=== PATIENT | female | born 1940 | race Caucasian/White ===

== ENCOUNTER → 2016-03-15 | Outpatient (CLI) | payer MEDICARE, OTHER | LOC: LAB.O 10:05 | PROVIDERS: ATTEND Internal Medicine Hematology & Oncology | DX: C34.2 Malignant neoplasm of middle lobe, bronchus or lung (principal) ==

== ENCOUNTER → 2016-06-03 | Outpatient (CLI) | payer MEDICARE, OTHER | END | disposition home or self-care (01) | LOC: NC 13:20 | PROVIDERS: ATTEND Family Medicine | DX: C34.90 Malignant neoplasm of unspecified part of unspecified bronchus or lung (principal); J44.9 Chronic obstructive pulmonary disease, unspecified; I10 Essential (primary) hypertension; C34.2 Malignant neoplasm of middle lobe, bronchus or lung ==

== ENCOUNTER → 2016-06-08 | Outpatient (CLI) | payer MEDICARE, OTHER | END | disposition home or self-care (01) | LOC: NC 09:47 | PROVIDERS: ATTEND Family Medicine | DX: C34.90 Malignant neoplasm of unspecified part of unspecified bronchus or lung (principal); C77.9 Secondary and unspecified malignant neoplasm of lymph node, unspecified; I10 Essential (primary) hypertension; I48.91 Unspecified atrial fibrillation ==

== ENCOUNTER → 2016-07-27 | Outpatient (CLI) | payer MEDICARE, OTHER | LOC: LAB.O 14:24 | PROVIDERS: ATTEND Internal Medicine Hematology & Oncology | DX: C34.2 Malignant neoplasm of middle lobe, bronchus or lung (principal) ==

== ENCOUNTER → 2016-08-22 | Outpatient (CLI) | payer MEDICARE, OTHER | END | disposition home or self-care (01) | LOC: LAB.O 11:52 | PROVIDERS: ATTEND Internal Medicine Hematology & Oncology | DX: C34.2 Malignant neoplasm of middle lobe, bronchus or lung (principal) ==

== ENCOUNTER → 2016-10-12 | Outpatient (CLI) | payer MEDICARE, OTHER ==
--- NOTE | 2016-10-13 11:37 | CT ---
EXAM DESCRIPTION: CT ABDOMEN AND PELVIS WITHOUT AND WITH CONTRAST CLINICAL HISTORY: LLQ ABDOMINAL TENDERNESS COMPARISON: None Available. TECHNIQUE: CT of the abdomen and pelvis are performed prior to and during IV bolus administration of nonionic contrast. Oral contrast enhancement was not utilized This exam was performed according to our departmental dose-optimization program, which includes automated exposure control, adjustment of the mA and/or kV according to patient size and/or use of iterative reconstruction technique. FINDINGS: Dextroscoliosis and degenerative changes in the spine are present, centered at the thoracolumbar junction region. Emphysematous and mild fibrotic changes at the lung bases without dense consolidation or mass is present. The bones are osteopenic without destructive process or sclerotic metastatic disease. An electronic stimulator overlies the left gluteal region laterally. Noncontrast imaging demonstrates a benign less than 2 cm cyst upper pole left kidney medially with the left upper quadrant otherwise unremarkable with extensive aortic and mesenteric vascular calcification noted. A small subcentimeter cyst upper pole of the right kidney is suggested. Large amount of stool in the right colon suggests an element of constipation but bowel obstruction is not apparent. Contrast enhanced examination demonstrates a small normal spleen and the pancreas is normal in appearance without solid or cystic mass or ductal obstruction. The liver is normal in size and appearance with normal distention of the gallbladder without bile duct dilation. The right and left adrenal glands are normal. A small subcentimeter cyst upper pole of the right kidney and approximate 1.8 cm oval cyst upper pole of the left kidney medially are noted and benign in appearance without further workup recommended the retroperitoneum is unremarkable with extensive aorto iliac vascular calcification without aneurysm. No adenopathy is noted. No solid or cystic renal mass or obstruction seen Within the pelvis a small anteverted calcified uterus is present with what appears to be small amount of endometrial fluid less than 1 cm in thickness. No adnexal mass is noted. The cecum and right colon are stool filled suggesting an element of constipation but inflammatory changes or a high-grade obstruction or free abdominal or pelvic fluid is not apparent. Acute right lower quadrant or left lower quadrant inflammatory changes are not apparent. Deformity of the right iliac crest consistent with old trauma or surgery is noted with no bony destructive changes and significant dextroscoliosis of the upper lumbar spine with modest degenerative disease noted. IMPRESSION: 1. Extra scoliosis of the thoracolumbar spine and deformity of the right iliac crest suggesting old trauma or surgery. 2. Small benign upper pole renal cysts bilaterally without specific abnormality in the left upper quadrant to explain the patient's pain. 3. Mild fibrotic and moderately advanced emphysematous changes both lung bases. 4. Small anteverted calcified uterus with a fluid-filled endometrial cavity evident with less than 1 cm in thickness of the fluid collection. Consider pelvic sonography for further evaluation 5. Stool-filled cecum and right colon suggesting an element of constipation but without evidence of obstruction or volvulus. Electronically signed by: Trenton Yanez MD 10/13/2016 11:35 AM CDT
== END ==
LOC: CT 11:31
PROVIDERS: ATTEND Family Medicine
DX: R10.814 Left lower quadrant abdominal tenderness (principal); N85.4 Malposition of uterus; N28.1 Cyst of kidney, acquired; R30.0 Dysuria

== ENCOUNTER → 2016-11-02 | Outpatient (CLI) | payer MEDICARE, OTHER ==
--- NOTE | 2016-11-03 07:50 | US ---
EXAM DESCRIPTION: Pelvis Transvaginal CLINICAL HISTORY: ABN CT COMPARISON: None available. TECHNIQUE: Transvaginal pelvic US was performed. FINDINGS: Uterus: The uterus is anteverted and atrophied, measuring approximately 4 cm in length. There is a small to moderate amount of minimally complex fluid in the endometrial canal without endometrial thickening. There is a probable tiny subserosal fibroid in the uterine fundus of doubtful clinical significance. Cervix: 1 cm nabothian cyst Right Ovary/Right Adnexa: 1.3 x 1.1 x 1.1 cm and otherwise unremarkable. Left Ovary/Left Adnexa: 2.0 x 0.8 x 1.9 cm and otherwise unremarkable. Free Fluid: No pathologic free fluid. IMPRESSION: Small to moderate amount of slightly complex fluid in the endometrial canal, questionable clinical significance. This may represent free fluid or endometrial cyst measuring up to 2 cm maximum dimension. No endometrial thickening or endometrial mass. Probable 1 cm uterine fibroid and a 1 cm nabothian cyst, both also of questionable clinical significance. Electronically signed by: Manav Carlson MD 11/03/2016 7:48 AM CDT
== END | disposition home or self-care (01) ==
LOC: US 08:20
PROVIDERS: ATTEND Family Medicine
DX: D25.9 Leiomyoma of uterus, unspecified (principal); N88.8 Other specified noninflammatory disorders of cervix uteri

== ENCOUNTER → 2016-11-18 | Outpatient (CLI) | payer MEDICARE, OTHER ==
--- NOTE | 2016-11-18 18:07 | CT ---
EXAM DESCRIPTION: Abdomen/Pelvis w/wo Contrast CLINICAL HISTORY: 76 years Female, Malignant neoplasm of middle lobe, bronchus or lung COMPARISON: 12 October 2016 TECHNIQUE: Transaxial images were obtained with and without intravenous contrast media. Sagittal and coronal reconstruction was performed.This exam was performed according to our departmental dose-optimization program, which includes automated exposure control, adjustment of the mA and/or kV according to patient size and/or use of iterative reconstruction technique. FINDINGS: Minimal parenchymal scarring is observed in the right middle lobe and the right lower lobe. No pleural fluid is seen. The liver and spleen are unremarkable. No biliary ductal dilatation is observed. The gallbladder is imaged is normal. Calcific atherosclerotic changes observed in the abdominal aorta without evidence of aneurysmal dilatation. Imaging of the kidneys reveals evidence of small simple cysts. No hydronephrosis mass or calcification is detected. The exam does reveal prior gastric region surgery. A right thoracolumbar scoliosis is noted. The exam reveals a transsacral stimulator in place. No free fluid is observed. Degenerative changes are observed throughout the lumbar spine. Deformity of the pelvis is observed from prior fracturing. An atrophic uterus is observed unchanged from the prior exam. No bowel abnormality is detected. No evidence of metastatic neoplasm is detected. IMPRESSION: 1. Probable scarring is observed in the right middle and lower lobes. 2. No evidence of metastatic neoplasm is detected. 3. Prior gastric region surgery Electronically signed by: Ramon Downey MD 11/18/2016 6:05 PM CDT
== END | disposition home or self-care (01) ==
LOC: CT 09:08
DX: C34.2 Malignant neoplasm of middle lobe, bronchus or lung (principal)

== ENCOUNTER → 2017-02-13 | Outpatient (CLI) | payer MEDICARE, OTHER ==
--- NOTE | 2017-02-14 15:41 | CT ---
EXAM DESCRIPTION: Abdomen w/wo Contrast (accession [id number]), Chest w/o Contrast (accession [id number]) CLINICAL HISTORY: Malignant neoplasm of middle lobe, bronchus or lung COMPARISON: March 01, 2016 TECHNIQUE: Pre and postcontrast CT images of the chest are obtained using standard imaging protocol. This exam was performed according to our departmental dose-optimization program, which includes automated exposure control, adjustment of the mA and/or kV according to patient size and/or use of iterative reconstruction technique . FINDINGS: Postsurgical changes from aortic valve replacement are seen. Moderate coronary artery, aortic, and great vessels calcific atherosclerotic disease is seen. There has been interval resolution of the 3.4 x 2.8 cm peripherally enhancing presumed lymph node in the subcarinal region seen on previous exam. No pathologic enlarged mediastinal, hilar, or axillary lymphadenopathy seen. There are postsurgical changes to the right chest from partial lobectomy. Lungs are hyperinflated. Moderate centrilobular emphysematous changes are seen. There is a peripheral interstitial thickening in the lungs) left have a similar appearance to previous exam. Several noncalcified nodular densities in the right lung are unchanged from previous. 6 mm noncalcified pulmonary nodule in the left lower lobe on image 44 is stable compared to previous exam. Image 31 of series 2 shows new 10 mm pleural-based area of soft tissue nodularity in the anterior right lower chest not definitely seen on previous exam. Scoliosis and degenerative changes of the spine are noted. No aggressive bony lesions are seen. IMPRESSION: Interval resolution of the enhancing mass lymph node in the subcarinal region seen on previous exam. Postsurgical changes to the chest are again noted. Moderate emphysematous changes to the chest. Seen with areas of chronic interstitial changes. There is a new area of nodularity in the parenchyma of the right lung measuring 10 mm. Could represent scarring versus new pulmonary nodule. Recommend follow-up CT imaging in 3-6 months for further evaluation. Other pulmonary nodules appear relatively stable from previous. Electronically signed by: Noe Hou MD 02/14/2017 3:39 PM [employer]
--- NOTE | 2017-02-14 15:41 | CT ---
EXAM DESCRIPTION: Abdomen w/wo Contrast (accession [id number]), Chest w/o Contrast (accession [id number]) CLINICAL HISTORY: Malignant neoplasm of middle lobe, bronchus or lung COMPARISON: March 01, 2016 TECHNIQUE: Pre and postcontrast CT images of the chest are obtained using standard imaging protocol. This exam was performed according to our departmental dose-optimization program, which includes automated exposure control, adjustment of the mA and/or kV according to patient size and/or use of iterative reconstruction technique . FINDINGS: Postsurgical changes from aortic valve replacement are seen. Moderate coronary artery, aortic, and great vessels calcific atherosclerotic disease is seen. There has been interval resolution of the 3.4 x 2.8 cm peripherally enhancing presumed lymph node in the subcarinal region seen on previous exam. No pathologic enlarged mediastinal, hilar, or axillary lymphadenopathy seen. There are postsurgical changes to the right chest from partial lobectomy. Lungs are hyperinflated. Moderate centrilobular emphysematous changes are seen. There is a peripheral interstitial thickening in the lungs) left have a similar appearance to previous exam. Several noncalcified nodular densities in the right lung are unchanged from previous. 6 mm noncalcified pulmonary nodule in the left lower lobe on image 44 is stable compared to previous exam. Image 31 of series 2 shows new 10 mm pleural-based area of soft tissue nodularity in the anterior right lower chest not definitely seen on previous exam. Scoliosis and degenerative changes of the spine are noted. No aggressive bony lesions are seen. IMPRESSION: Interval resolution of the enhancing mass lymph node in the subcarinal region seen on previous exam. Postsurgical changes to the chest are again noted. Moderate emphysematous changes to the chest. Seen with areas of chronic interstitial changes. There is a new area of nodularity in the parenchyma of the right lung measuring 10 mm. Could represent scarring versus new pulmonary nodule. Recommend follow-up CT imaging in 3-6 months for further evaluation. Other pulmonary nodules appear relatively stable from previous. Electronically signed by: Noe Hou MD 02/14/2017 3:39 PM [employer] F[employer]
--- NOTE | 2017-02-14 15:52 | CT ---
EXAM DESCRIPTION: CT abdomen and pelvis with and without contrast CLINICAL HISTORY: Malignant neoplasm of middle lobe, bronchus or lung COMPARISON: November 18, 2016 TECHNIQUE: Pre and postcontrast CT images of the abdomen are obtained. This exam was performed according to our departmental dose-optimization program, which includes automated exposure control, adjustment of the mA and/or kV according to patient size and/or use of iterative reconstruction technique . FINDINGS: Findings in the lower chest are described on CT of the chest from today. Liver, spleen, pancreas, and adrenal glands are unremarkable. Bilateral renal cortical cysts are stable from previous. No significant nephrolithiasis. No obvious ureteral obstruction. Severe calcific atherosclerotic disease is seen. No pathologic lymphadenopathy. Visualized bowel and colon are unremarkable. Partly visualized generator pack in the left gluteal region is seen with right-sided sacral stimulator. Healed fracture of the right iliac crest is partly visualized. Monitored dextrocurvature of the thoracolumbar junction with degenerative changes of the spine are seen. IMPRESSION: No acute findings on CT of the abdomen. No CT evidence of metastatic disease to the abdomen. Severe atherosclerotic disease. Other chronic findings as described above. 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
== END | disposition home or self-care (01) ==
LOC: CT 13:09
PROVIDERS: ATTEND Internal Medicine Hematology & Oncology
DX: C34.2 Malignant neoplasm of middle lobe, bronchus or lung (principal)

== ENCOUNTER → 2017-04-27 | Outpatient (CLI) | payer MEDICARE, OTHER ==
--- NOTE | 2017-04-29 13:42 | CT ---
EXAM DESCRIPTION: Chest w/Contrast : Computed Tomography. CLINICAL HISTORY: Malignant neoplasm of middle lobe, bronchus or lung COMPARISON: CT scan of the chest 02/13/2017. TECHNIQUE: Spiral-axial scans at 5.0 mm intervals through the lungs and thorax with IV contrast. 2.5 mm lung algorithm axial reconstructions. Coronal 2.0 Mm reconstructions. No adverse reactions. Total Exam DLP: 168.33 mGy-cm. This exam was performed according to our departmental dose-optimization program which includes automated exposure control, adjustment of the mA and/or kV according to patient size and/or use of iterative reconstruction technique; to reduce radiation dose to as low as reasonably achievable (ALARA). FINDINGS: Prominent airspaces in the lungs bilaterally. Bilateral scattered centrilobular blebs. Bilateral pleural-based blebs. Hyperinflation of the left lung. Scarring and volume loss in the right upper lobe and thickening of the right horizontal fissure. Pleural thickening laterally where the fissure inserts. Volume loss in the right middle lobe with expansion of the lower lobe. 5 cm craniocaudal, irregular focus of pleural thickening and spiculation lateral anterior right lower lobe unchanged since the prior study. Peripheral right lower lobe posterior pulmonary cysts and tree-in-bud densities are stable. No new mass nodules or effusion bilaterally. No pneumothorax. Minimal enhancement of the thyroid gland in the mediastinum. No enlarged lymph nodes in the neck base. Subcarinal surgical clips. Sternotomy wires. 11 mm short axis lymph node azygos region. 7 mm short axis lymph node AP window. 6 mm short axis lymph node left hilum. 7 mm short axis lymph node right hilum. Aortic valve visualized along with coronary artery calcifications. Atherosclerotic calcifications of aorta and the proximal brachiocephalic vessels. Surgical clips right hilum. Levoscoliosis of the thoracic spine and thoracolumbar dextroscoliosis. Spondylosis at multiple levels with decreased bone density. Minimal joint space narrowing bilateral glenohumeral joints. No bone destruction. Scarring and loss of adipose tissue upper anterior right chest wall stable since the prior study. Abdominal aortic calcifications and calcifications of the celiac and SMA vessels. Normal size and enhancement of the spleen and adrenal glands. 2.5 cm cyst upper left kidney. IMPRESSION: Postsurgical changes in the right thorax. Scarring and volume loss. No recurrent mass, abnormal nodules or pleural effusion. Bilateral centrilobular emphysematous changes. Enlarged lymph nodes in the ranjith and mediastinum are stable. Electronically signed by: Brad Romero MD 04/29/2017 1:41 PM [employer] APPRENTICE
== END ==
LOC: CT 08:30
DX: K74.3 Primary biliary cirrhosis (principal); C34.2 Malignant neoplasm of middle lobe, bronchus or lung; K59.01 Slow transit constipation; M81.0 Age-related osteoporosis without current pathological fracture; K59.00 Constipation, unspecified; E55.9 Vitamin D deficiency, unspecified

== ENCOUNTER → 2017-04-28 | Outpatient (CLI) | payer MEDICARE, OTHER ==
--- NOTE | 2017-05-01 08:32 | US ---
EXAM DESCRIPTION: Ultrasound examination of the liver. CLINICAL HISTORY: 76 years Female, PRIMARY BILIARY CIRRHOSIS COMPARISON: CT abdomen February 13, 2017 and ultrasound of the liver February 17, 2016 TECHNIQUE: Sonogram of the right upper abdomen was performed. FINDINGS: Visualized portions of the pancreas are unremarkable. Normal appearance of aorta and inferior vena cava. Liver is homogeneous in texture. No focal liver lesion. Normal appearance of hepatic veins and inferior vena cava. Positive color flow in the portal vein and inferior vena cava. Normal caliber of the common bile duct. Gallbladder appears normal with no stones or wall thickening. Liver parenchyma is homogeneous in texture. No focal liver lesion. Common duct measures 2.8 mm in diameter. Liver length is 14.6 cm in diameter on the present study compared to 15.6 cm in length on the previous exam. No significant change. No focal liver lesion. Liver surface appears relatively smooth anteriorly in the region of the left lobe. On some images, the anterior and posterior surfaces of the right lobe appear mildly irregular as seen with cirrhosis. Liver surface appears smooth on the previous sonogram and previous CT of the abdomen. No intrahepatic or extrahepatic bile duct dilatation. IMPRESSION: No acute process is identified on sonographic examination of the right upper abdomen. See above. Electronically signed by: Prince Vergara MD 05/01/2017 8:31 AM SPLITTER HAND
== END ==
LOC: US 13:30
DX: K74.3 Primary biliary cirrhosis (principal); K59.01 Slow transit constipation; M81.0 Age-related osteoporosis without current pathological fracture; K59.00 Constipation, unspecified; E55.9 Vitamin D deficiency, unspecified; R77.2 Abnormality of alphafetoprotein; R97.8 Other abnormal tumor markers; R93.5 Abnormal findings on diagnostic imaging of other abdominal regions, including retroperitoneum; R93.8 Abnormal findings on diagnostic imaging of other specified body structures

== ENCOUNTER 2017-05-19 10:11 | Emergency (ER) | payer MEDICARE, OTHER ==
[2017-05-19] MEDS ORDERED: ONDANSETRON INJ 4 MG/2 ML VIAL IV ONE (10:35)
--- NOTE | 2017-05-19 10:40 | ED.PDOC ---
History of Present Illness - General Chief Complaint: GI Problem Stated Complaint: abdominal pain Time Seen by Provider: 05/19/17 10:27 Source: patient Exam Limitations: no limitations - History of Present Illness Initial Comments: Patient presents with mid-abdominal pain since yesterday. Today she developed dry heaves. The pain is constant, non-radiating, cramping, no previous episodes , worse with movement, better with rest. Had a left "hernia repair" but no other abdominal surgeries. No dysuria. She had arterial stents placed in both legs 3 days ago for PVD. She was asymptomatic the next day. Her father had an AMI as well as her brother. She is not diabetic. She has smoked a pack per day of cigarrettes for 67 years and has COPD. She also is being treated for hyperlipidemia. She has a history of bipedal edema. No chest pain. No other complaints. Timing/Duration: 24 hours Severity: mild Improving Factors: rest Worsening Factors: movement Associated Symptoms: other - as in HPI Allergies/Adverse Reactions: Allergies NO KNOWN ALLERGY Allergy (Verified 04/15/15 07:19) Home Medications: Ambulatory Orders Aspirin [Aspirin 81] 81 mg PO DAILY 02/19/13 Atenolol 50 mg PO DAILY 02/19/13 Levothyroxine Sodium [Synthroid] 100 mcg PO DAILY 02/19/13 Simvastatin [Zocor] 50 mg PO DAILY 02/19/13 Ursodiol 900 mg PO DAILY 02/19/13 Pantoprazole Tablet [Protonix] 40 mg PO PRN PRN 04/14/15 Clopidogrel Bisulfate [Plavix] 75 mg PO QD 05/19/17 Ergocalciferol [Vitamin D] 50,000 unit PO WKLY 05/19/17 Folic Yhkf-Dahcbsquit-Iaksedsv [Folbic 2.5-25-2 mg] 1 tab PO DAILY 05/19/17 Losartan Potassium 50 mg PO DAILY 05/19/17 Ondansetron [Zofran Odt] 4 mg PO Q6HRS #10 tab 05/19/17 Promethazine Tab [Phenergan Tablet] 25 mg PO .Q4H #10 tab 05/19/17 Review of Systems - Review of Systems Constitutional: States: no symptoms reported EENTM: States: no symptoms reported Respiratory: States: no symptoms reported Cardiology: States: no symptoms reported Gastrointestinal/Abdominal: States: see HPI Genitourinary: States: no symptoms reported Musculoskeletal: States: no symptoms reported Skin: States: no symptoms reported Neurological: States: no symptoms reported Endocrine: States: no symptoms reported Hematologic/Lymphatic: States: no symptoms reported Past Medical History (General) - Patient Medical History Hx Seizures: No Hx Stroke: No Hx Asthma: No Hx of COPD: No Hx Cardiac Disorders: Yes Hx Congestive Heart Failure: No Hx Pacemaker: No Hx Hypertension: Yes Hx Thyroid Disease: Yes Hx Diabetes: No Hx Cancer: Yes - Lung Hx MRSA: No - Vaccination History Hx Influenza Vaccination: Yes - 2015 - Social History Hx Tobacco Use: Yes Hx Alcohol Use: No Hx Substance Use: No Hx Physical Abuse: No Hx Emotional Abuse: No - Female History Patient : No Family Medical History - Family History Mother Family History: No Known Living Status: Hx Family Hypertension: Yes Hx Cardiac Disease: Yes Physical Exam - Physical Exam General Appearance: Alert Eye Exam: bilateral normal Ears, Nose, Throat: normal ENT inspection Neck: non-tender, full range of motion, supple Respiratory: decreased breath sounds, other - distant breath sounds in all lung rojo. scant expiratory wheezing that is scattered. 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, no motor/sensory deficits, alert Skin Exam: normal color Lymphatic: no adenopathy Progress - Progress Progress: 05/19/17 13:08 Laboratory Tests 05/19/17 05/19/17 05/19/17 10:32 10:33 10:33 WBC 13.4 H RBC 4.00 L Hgb 11.9 L Hct 36.0 MCV 89.9 MCH 29.7 MCHC 33.1 RDW 13.5 Plt Count 155 MPV 9.6 Absolute Neuts (auto) 12.10 H Absolute Lymphs (auto) 0.60 L Absolute Monos (auto) 0.60 Absolute Eos (auto) 0.00 Absolute Basos (auto) 0.00 Neutrophils % 90.3 H Lymphocytes % 4.8 L Monocytes % 4.4 Eosinophils % 0.2 L Basophils % 0.3 PT INR PTT (SP) Sodium 139 Potassium 3.9 Chloride 107 Carbon Dioxide 23 Anion Gap 12.9 BUN 14 Creatinine 0.64 BUN/Creatinine Ratio 21.9 H Random Glucose 177 H Serum Osmolality 282.4 Calcium 10.3 H Total Bilirubin 1.2 H AST 29 ALT 19 Alkaline Phosphatase 150 H Creatine Kinase 19 L CK-MB (CK-2) 1.3 CK-MB (CK-2) % Not Reportable Troponin I 0.04 B-Natriuretic Peptide 257.0 H* Serum Total Protein 7.5 Albumin 3.3 Globulin 4.2 H Albumin/Globulin Ratio 0.8 L Lipase TSH Urine Color Urine Appearance Urine pH Ur Specific [place] Urine Protein Urine Glucose (UA) Urine Ketones Urine Blood Urine Nitrite Urine Bilirubin Urine Urobilinogen Ur Leukocyte Esterase Urine RBC Urine WBC Ur Epithelial Cells Urine Bacteria 05/19/17 05/19/17 05/19/17 10:33 10:34 10:35 WBC RBC Hgb Hct MCV MCH MCHC RDW Plt Count MPV Absolute Neuts (auto) Absolute Lymphs (auto) Absolute Monos (auto) Absolute Eos (auto) Absolute Basos (auto) Neutrophils % Lymphocytes % Monocytes % Eosinophils % Basophils % PT 12.5 INR 1.110 PTT (SP) 28.2 Sodium Potassium Chloride Carbon Dioxide Anion Gap BUN Creatinine BUN/Creatinine Ratio Random Glucose Serum Osmolality Calcium Total Bilirubin AST ALT Alkaline Phosphatase Creatine Kinase CK-MB (CK-2) CK-MB (CK-2) % Troponin I B-Natriuretic Peptide Serum Total Protein Albumin Globulin Albumin/Globulin Ratio Lipase 21 L TSH 0.26 L Urine Color Urine Appearance Urine pH Ur Specific [place] Urine Protein Urine Glucose (UA) Urine Ketones Urine Blood Urine Nitrite Urine Bilirubin Urine Urobilinogen Ur Leukocyte Esterase Urine RBC Urine WBC Ur Epithelial Cells Urine Bacteria 05/19/17 12:42 WBC RBC Hgb Hct MCV MCH MCHC RDW Plt Count MPV Absolute Neuts (auto) Absolute Lymphs (auto) Absolute Monos (auto) Absolute Eos (auto) Absolute Basos (auto) Neutrophils % Lymphocytes % Monocytes % Eosinophils % Basophils % PT INR PTT (SP) Sodium Potassium Chloride Carbon Dioxide Anion Gap BUN Creatinine BUN/Creatinine Ratio Random Glucose Serum Osmolality Calcium Total Bilirubin AST ALT Alkaline Phosphatase Creatine Kinase CK-MB (CK-2) CK-MB (CK-2) % Troponin I B-Natriuretic Peptide Serum Total Protein Albumin Globulin Albumin/Globulin Ratio Lipase TSH Urine Color Yellow Urine Appearance Clear Urine pH 7.0 Ur Specific [place] 1.010 Urine Protein Negative Urine Glucose (UA) Negative Urine Ketones 15 H Urine Blood Moderate H Urine Nitrite Negative Urine Bilirubin Negative Urine Urobilinogen 0.2 Ur Leukocyte Esterase Negative Urine RBC 3-5 H Urine WBC 0 Ur Epithelial Cells 1-[address] findings suggest colitis. Patient discharged with orders to increase oral fluids and also with RX for zofran and phenergan. Departure - Departure Clinical Impression: Gastroenteritis Disposition: Discharge to Home or Self Care Condition: Good Departure Forms: ED Discharge - Pt. Copy, Patient Portal Self Enrollment Diet: other - increase oral fluids Activity: increase activity as tolerated Referrals: Camron Garzon MD [Primary Care Provider] - 1-2 Weeks Prescriptions: Ondansetron [Zofran Odt] 4 mg PO Q6HRS #10 tab Promethazine Tab [Phenergan Tablet] 25 mg PO .Q4H #10 tab Home Medications: Ambulatory Orders Aspirin [Aspirin 81] 81 mg PO DAILY 02/19/13 Atenolol 50 mg PO DAILY 02/19/13 Levothyroxine Sodium [Synthroid] 100 mcg PO DAILY 02/19/13 Simvastatin [Zocor] 50 mg PO DAILY 02/19/13 Ursodiol 900 mg PO DAILY 02/19/13 Pantoprazole Tablet [Protonix] 40 mg PO PRN PRN 04/14/15 Clopidogrel Bisulfate [Plavix] 75 mg PO QD 05/19/17 Ergocalciferol [Vitamin D] 50,000 unit PO WKLY 05/19/17 Folic Pfop-Ptqskcfnoq-Gwpzrhuc [Folbic 2.5-25-2 mg] 1 tab PO DAILY 05/19/17 Losartan Potassium 50 mg PO DAILY 05/19/17 Ondansetron [Zofran Odt] 4 mg PO Q6HRS #10 tab 05/19/17 Promethazine Tab [Phenergan Tablet] 25 mg PO .Q4H #10 tab 05/19/17 Additional Instructions: Increase oral fluids. Return to E.R. if nausea and vomiting continues without the development of diarrhea by monday.
[2017-05-19 10:41] VITALS: O2SAT 98
--- NOTE | 2017-05-19 10:53 | RAD ---
EXAM DESCRIPTION: Chest,1 View CLINICAL HISTORY: abdominal pain COMPARISON: December 30, 2013 IMPRESSION: Single AP portable upright view of the chest shows cardiac silhouette and pulmonary vasculature to be within normal limits. Postsurgical changes from sternotomy with aortic valve replacement are again seen. Lungs are normally aerated. Postsurgical changes to the right chest are seen with surgical suture line in the right suprahilar region. There is increased elevation of the lateral right hemidiaphragm with increased interstitial markings in the right lower lobe that could indicate atelectasis versus scarring related to interval postsurgical changes to the chest. This has a similar appearance to previous CT scan from April 27, 2017. No acute appearing infiltrates are identified. Electronically signed by: Noe Hou MD 05/19/2017 10:52 AM SERVICE LEARNING COORDINATOR
--- NOTE | 2017-05-19 12:52 | CT ---
EXAM DESCRIPTION: Abdomen/Pelvis w/Contrast CLINICAL HISTORY: abd pain COMPARISON: February 13, 2017 and November 18, 2016 TECHNIQUE: CT of the abdomen and Pelvis was performed with IV contrast. This exam was performed according to our departmental dose-optimization program, which includes automated exposure control, adjustment of the mA and/or kV according to patient size and/or use of iterative reconstruction technique. FINDINGS: Again seen are postoperative changes in the mediastinum. There is a 6 or 7 mm pleural-based nodular density in the right middle lobe with some adjacent linear density, unchanged from February,, but new from an older exam performed in January,. The lung bases are otherwise unremarkable. There is a tiny right-sided pleural effusion only partially visualized. Mural calcifications are noted in the abdominal aorta without aneurysm or dissection. There is a small amount of ascites adjacent to the liver and spleen. No adenopathy or pneumoperitoneum. No calcified gallstone or liver mass. The spleen is not enlarged. The pancreas and adrenals are unremarkable. There are round low density lesions in both kidneys, the largest measuring 2 cm diameter superior pole left kidney. These are indeterminate but probably cystic. There are a few dilated fluid-filled small bowel loops in the right lower quadrant with some adjacent fluid and possible wall thickening. Is a moderate amount of stool and gas in the colon without colonic wall thickening or pericolonic inflammation. The appendix is not definitely identified. No bladder wall thickening. The uterus and ovaries are not identified, correlate with surgical history. There are degenerative changes in lumbar spine at several levels including mild dextroscoliosis only partially visualized. There is an old healed right iliac fracture. IMPRESSION: Several dilated fluid-filled small bowel loops in the right lower quadrant with possible small bowel wall thickening. Findings are nonspecific, but infectious or inflammatory enteritis should be considered. Small to moderate amount of colonic stool and gas, see no convincing evidence of small bowel obstruction at this time. If symptoms persist or worsen, follow-up KUB or CT should be considered. Small amount of ascites and a tiny right-sided pleural effusion. Round low-density lesions in both kidneys, indeterminate but probably cystic. Ultrasound could be performed for confirmation. 6 or 7 mm pleural-based right middle lobe nodule with slightly speech related margins. This is unchanged from February,. Per 2017 Fleischner Society recommendations, additional follow-up CT in 12 months is recommended to document continued stability. . Electronically signed by: Manav Carlson MD 05/19/2017 12:51 PM [facility]
[2017-05-19 13:35] VITALS: BP 160/78; TEMP 98.1
== END 2017-05-19 13:35 | disposition home or self-care (01) ==
LOC: ER 10:11
DX: K52.9 Noninfective gastroenteritis and colitis, unspecified (principal); I10 Essential (primary) hypertension; J44.9 Chronic obstructive pulmonary disease, unspecified; F17.210 Nicotine dependence, cigarettes, uncomplicated; Z82.49 Family history of ischemic heart disease and other diseases of the circulatory system; Z85.118 Personal history of other malignant neoplasm of bronchus and lung; Z79.02 Long term (current) use of antithrombotics/antiplatelets; Z79.82 Long term (current) use of aspirin
CPT/HCPCS: 36415; 71045; 74177; 80053; 81001; 82550; 82553; 83690; 83880; 84443; 84484; 85025; 85610; 85730; J2405

== ENCOUNTER 2017-05-19 19:44 | Observation (INO) | payer MEDICARE, OTHER ==
[2017-05-19] MEDS ORDERED: SODIUM CHLORIDE 0.9% 1000ML 1,000 ML IVS ONE (20:21)
--- NOTE | 2017-05-19 20:55 | ED.PDOC ---
History of Present Illness - General Chief Complaint: Syncope/Near Syncope Time Seen by Provider: 05/19/17 20:15 Source: patient, family Exam Limitations: no limitations - History of Present Illness Initial Comments: Patient presents after a syncopal episode. She was here earlier today and diagnosed with gastroenteritis. She received fluids and zofran. She went home and had a N/V episode and had a syncopal event following that. She came by EMS. Timing/Duration: other - just SHE[employer] R[employer]ER Severity: mild Improving Factors: nothing Worsening Factors: nothing Associated Symptoms: denies symptoms Allergies/Adverse Reactions: Allergies NO KNOWN ALLERGY Allergy (Verified 04/15/15 07:19) Home Medications: Ambulatory Orders Aspirin [Aspirin 81] 81 mg PO DAILY 02/19/13 Atenolol 50 mg PO DAILY 02/19/13 Levothyroxine Sodium [Synthroid] 100 mcg PO DAILY 02/19/13 Simvastatin [Zocor] 50 mg PO DAILY 02/19/13 Ursodiol 900 mg PO DAILY 02/19/13 Pantoprazole Tablet [Protonix] 40 mg PO PRN PRN 04/14/15 Clopidogrel Bisulfate [Plavix] 75 mg PO QD 05/19/17 Ergocalciferol [Vitamin D] 50,000 unit PO WKLY 05/19/17 Folic Fbsd-Gsoyjmjsee-Lrrmzwqq [Folbic 2.5-25-2 mg] 1 tab PO DAILY 05/19/17 Losartan Potassium 50 mg PO DAILY 05/19/17 Ondansetron [Zofran Odt] 4 mg PO Q6HRS #10 tab 05/19/17 Promethazine Tab [Phenergan Tablet] 25 mg PO .Q4H #10 tab 05/19/17 Review of Systems - Review of Systems Constitutional: States: no symptoms reported EENTM: States: no symptoms reported Respiratory: States: no symptoms reported Cardiology: States: no symptoms reported Gastrointestinal/Abdominal: States: see HPI Genitourinary: States: no symptoms reported Musculoskeletal: States: no symptoms reported Skin: States: no symptoms reported Neurological: States: see HPI Endocrine: States: no symptoms reported Hematologic/Lymphatic: States: no symptoms reported Past Medical History (General) - Patient Medical History Hx Seizures: No Hx Stroke: No Hx Asthma: No Hx of COPD: No Hx Cardiac Disorders: Yes Hx Congestive Heart Failure: No Hx Pacemaker: No Hx Hypertension: Yes Hx Thyroid Disease: Yes Hx Diabetes: No Hx Cancer: Yes - Lung Hx MRSA: No Surgical History: other - Vaccination History Hx Tetanus, Diphtheria Vaccination: Yes Hx Influenza Vaccination: Yes Hx Pneumococcal Vaccination: Yes Immunizations Up to Date: Yes - Social History Hx Tobacco Use: Yes Hx Alcohol Use: No Hx Substance Use: No Hx Physical Abuse: No Hx Emotional Abuse: No - Female History Patient : No Family Medical History - Family History Mother Family History: No Known Living Status: Hx Family Hypertension: Yes Hx Cardiac Disease: Yes Physical Exam - Physical Exam General Appearance: Alert Eye Exam: bilateral normal Ears, Nose, Throat: normal ENT inspection Neck: non-tender, full range of motion, supple Respiratory: lungs clear, normal breath sounds Cardiovascular/Chest: normal peripheral pulses, regular rate, rhythm, no edema Gastrointestinal/Abdominal: normal bowel sounds, non tender, soft Back Exam: normal inspection Extremity: normal range of motion, non-tender, normal inspection 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 Patient admitted for fluids and anti-emetics since she is now a fall risk due to likely vaso-vagal syncope following N/V. Departure - Departure Clinical Impression: Syncope, Gastroenteritis Disposition: Admit Patient Condition: Good Departure Forms: ED Discharge - Pt. Copy, Patient Portal Self Enrollment Diet: other - as per hospitalist Activity: other - as per hospitalist Referrals: Camron Garzon MD [Primary Care Provider] - 1-2 Weeks Home Medications: Ambulatory Orders Aspirin [Aspirin 81] 81 mg PO DAILY 02/19/13 Atenolol 50 mg PO DAILY 02/19/13 Levothyroxine Sodium [Synthroid] 100 mcg PO DAILY 02/19/13 Simvastatin [Zocor] 50 mg PO DAILY 02/19/13 Ursodiol 900 mg PO DAILY 02/19/13 Pantoprazole Tablet [Protonix] 40 mg PO PRN PRN 04/14/15 Clopidogrel Bisulfate [Plavix] 75 mg PO QD 05/19/17 Ergocalciferol [Vitamin D] 50,000 unit PO WKLY 05/19/17 Folic Hdmi-Ouyslzrbne-Eahieznw [Folbic 2.5-25-2 mg] 1 tab PO DAILY 05/19/17 Losartan Potassium 50 mg PO DAILY 05/19/17 Ondansetron [Zofran Odt] 4 mg PO Q6HRS #10 tab 05/19/17 Promethazine Tab [Phenergan Tablet] 25 mg PO .Q4H #10 tab 05/19/17
--- NOTE | 2017-05-19 20:57 | HP ---
SUPERVISING PHYSICIAN: Trenton Avina MD CHIEF COMPLAINT: Nausea and vomiting, abdominal pain. HISTORY OF PRESENT ILLNESS: This is a 76 year-old female patient who has a longstanding history of lung cancer and liver cirrhosis. Her lung cancer has been in remission since March of 2016. She has had some nausea and vomiting for two days. This morning she had midepigastric and right upper quadrant abdominal pain and came to the Emergency Room due to the abdominal pain with nausea and dry heaving. She was treated and released. She went home. She was transferring from her chair to her bed and had a syncopal episode. She continued to have nausea and some vomiting, although the vomiting was a small amount due to that she has not eaten in over 24 hours. In the Emergency Room, her lab showed her WBC of 13.4 with a slight left shift. Her hemoglobin was 11.9 and hematocrit 36.0. Her sodium was 139, potassium 3.9, chloride 107, carbon dioxide 23, BUN 14, creatinine 0.64, glucose 177. Calcium was 10.3, total bilirubin 1.2 with an alkaline phosphatase of 150. Cardiac enzymes were negative. BNP was slightly elevated at 257, lipase 21 and her TSH is 0.26. Urinalysis showed 15 urine ketones with a moderate amount of urine blood and 3 to 5 urine RBCs, although the patient says she has had blood in her urine for quite some time. Chest x-ray shows an increased elevation in the lateral right hemidiaphragm with increased interstitial markings in the right lower lobe that could indicate atelectasis versus scarring related to interval postsurgical changes to the chest. It has a similar appearance to a previous CT scan from April of 2017. No acute appearing infiltrates are identified. CT of the abdomen showed several dilated fluid filled small bowel loops in the right lower quadrant with possible small bowel wall thickening. These findings were nonspecific but infectious or inflammatory enteritis should be considered. Small to moderate amount of colonic stool and gas with no convincing evidence of a small bowel obstruction at this time. A small amount of ascites and a tiny right-sided pleural effusion, round low density lesions in both kidneys, indeterminate but probably cystic. 6 or 7 mm but pleural based right middle lobe nodule with slightly speech-related margins, unchanged from February of 2017. She was given fluids in the Emergency Room as well as some antiemetics and I was called for admission to the hospital. PAST MEDICAL HISTORY: 1. Long history of of smoking with some chronic obstructive pulmonary disease. Patient continues to smoke one back of cigarettes per day. 2. History of hypertension. 3. History of aortic valve disease requiring surgical repair. 4. Lung cancer, presently in remission since March of 2016. 5. Cirrhosis of the liver being treated by Dr. Burnette. PAST SURGICAL HISTORY: 1. Aortic valve replacement surgery. 2. Right carotid endarterectomy. 3. Left hernia repair. 4. Lung cancer surgically excised with no known recurrence. 5. Lymph node excision due to lung cancer in March of 2016. 6. Bilateral aortic stents approximately two weeks ago. CURRENT MEDICATIONS: Per the EMR and awaiting home medications. ALLERGIES: NO KNOWN DRUG ALLERGIES BUT MORPHINE DOES CAUSE SOME CONFUSION. FAMILY HISTORY: Positive for cancer, heart and lung problems, diabetes and strokes. SOCIAL HISTORY: She lives in [place]. She is . She smokes approximately one pack of cigarettes per day and has a 75 plus pack year history. She denies any ETOH or illicit drug use. REVIEW OF SYSTEMS: GENERAL: Positive for chills and progressive weight loss. Negative for fever. HEENT: Negative for hearing problems, vision changes, sore throat or sinus symptoms. CHEST: Lungs are positive for chronic shortness of breath and chronic cough. Negative for wheezing. HEART: Negative for chest pain, palpitations or tachycardia. ABDOMEN: Positive for diffuse abdominal pain but mostly epigastric and right upper quadrant as well as poor appetite. Positive for nausea and vomiting with dry heaving. She denies any diarrhea or blood in her stools. GENITOURINARY: Positive for hematuria, negative for dysuria or polyuria. EXTREMITIES: Positive for multiple bruises. Negative for edema. PHYSICAL EXAMINATION: VITAL SIGNS: She is afebrile. Heart rate 100. Blood pressure 135/70. Respiratory rate 20, 02 saturation 100% on room air. GENERAL: This is a 76 year-old cachectic female patient who is lying in her hospital bed. She is obviously chilled. She is in no acute distress. HEENT: Normocephalic and atraumatic. Pupils are equal and reactive. Oropharynx is somewhat dry. NECK: Supple without mass. CHEST: Diminished breath sounds at the bases. Otherwise, essentially clear to auscultation. Chest has equal rise and fall with inspiration and expiration. CARDIOVASCULAR: Regular rate and rhythm. There is a noticeable opening and closing of the aortic valve. ABDOMEN: Soft but diffusely tender, more tender in the epigastric and right upper quadrant areas. I was unable to palpate the liver due to patient's discomfort. There is no rebound tenderness. Bowel sounds are positive. EXTREMITIES: She has ecchymoses on all four extremities but there is no edema noted. NEUROLOGIC: She is slightly lethargic but is awake and oriented x3. Labs and films are as per the history of present illness. ASSESSMENT: 1. Nausea and vomiting and abdominal pain with concerns for developing gastritis. 2. Mild leukocytosis with a left shift. 3. History of lung cancer which has been in remission in March of 2016. 4. Cirrhosis of the liver. 5. Hematuria that may be chronic in nature. 6. Hypertension. 7. Tobacco abuse. She has a 75 pack year smoking history. PLAN: We will place the patient in observation. I will give her some IV fluids overnight as well as antiemetics. We will do bowel rest with her being n.p.o.. I have done blood cultures and urine cultures as well as an abdominal x -ray and abdominal ultrasound in the morning. Labs will also be repeated in the morning and we will continue to monitor the patient closely and follow as needed. Dr. Avina is the collaborating physician and available for consultation. #[id number] [facility]
[2017-05-19] MEDS ORDERED: KCL 20MEQ/D5 1/2NS 1,000 ML IVS PRN (22:06)
[2017-05-19] MEDS ORDERED: ONDANSETRON INJ 4 MG/2 ML VIAL IV PRN (22:06)
[2017-05-19] MEDS ORDERED: SODIUM CHLORIDE 0.9% (FLUSH) 10 ML SYG IV PRN (22:09)
[2017-05-19] MEDS ORDERED: IV SET AND CAP CHANGE INJ INJ SCH (22:30)
[2017-05-19] MEDS ORDERED: PANTOPRAZOLE SODIUM IV 40 MG VIAL IV SCH (22:30)
--- NOTE | 2017-05-20 03:05 | RAD ---
EXAM: SINGLE VIEW ABDOMEN RADIOGRAPH CLINICAL INDICATION: Gastritis. Nausea and vomiting. COMPARISON: None. FINDINGS: No bowel obstruction or free peritoneal gas on this single view. Bowel gas extends into the sigmoid colon. Contrast in both kidneys secondary to yesterday's abdomen and pelvic CT examination. IMPRESSION: No bowel obstruction or free peritoneal gas. Electronically signed by: Dev Olsen MD 05/20/2017 3:04 AM PLASTIC FRAME INSERTER
--- NOTE | 2017-05-20 03:08 | CT ---
EXAMINATION: Noncontrast chest CT examination. REFERRAL DIAGNOSIS: Patient stopped breathing. Chest tightness. COMPARISONS: Chest CT of February 13, 2017 and April 27, 2017. PROCEDURE: Using low-dose helical technique, thin section axial images were performed through the chest without the administration of intravenous contrast material. CHEST CT FINDINGS: Changed sequela of remote heart surgery. No pericardial effusion. Unchanged findings of centrilobular emphysema. Unchanged bibasilar honeycombing typical for pulmonary fibrosis. No superimposed acute cardiopulmonary disease. No pneumothorax. Partially visualized ascites. IMPRESSION: 1. Unchanged chest CT examination. No evidence of acute cardiopulmonary disease. 2. Ascites. This exam was performed according to our departmental dose-optimization program, which includes automated exposure control, adjustment of the mA and/or kV according to patient size and/or use of iterative reconstruction technique. Electronically signed by: Dev Olsen MD 05/20/2017 3:07 AM [facility]
--- NOTE | 2017-05-20 03:09 | CT ---
EXAM: NONCONTRAST BRAIN CT EXAMINATION. CLINICAL INDICATION: Syncopal episode. Patient stopped breathing. COMPARISON: No recent comparisons are available. TECHNIQUE: Using low dose helical CT technique, thin section axial images were performed through the brain without the administration of intravenous or subarachnoid contrast material. FINDINGS: Brain volume is normal for age. No diffuse brain swelling or brain herniation. No hydrocephalus. No subdural or epidural hematomas. No large subacute brain infarction. No parenchymal brain hemorrhage or evidence of intracranial mass lesion. The brainstem and cerebellum are normal. Cerebral white matter is grossly normal. Caudate heads, lentiform nuclei, thalami and internal capsules are normal. Bones of the skull and skull base are normal. The middle ears and mastoid air cells are clear. Partially visualized chronic right maxillary sinusitis. The paranasal sinuses are otherwise clear. Globes and orbits are grossly normal. Mild atherosclerotic calcification in the cavernous internal carotid arteries. IMPRESSION: 1. Normal for age noncontrast brain CT examination. This exam was performed according to our departmental dose-optimization program, which includes automated exposure control, adjustment of the mA and/or kV according to patient size and/or use of iterative reconstruction technique. Electronically signed by: Dev Olsen MD 05/20/2017 3:08 AM LEARNING FACILITATOR
[2017-05-20] MEDS ORDERED: diphenhydrAMINE HCL 50 MG/ML VIAL IV ONE (06:45)
[2017-05-20] MEDS ORDERED: ACETAMINOPHEN 325 MG TAB PO ONE (06:45)
[2017-05-20 06:49] VITALS: O2SAT 100
[2017-05-20] MEDS ORDERED: SODIUM CHLORIDE 0.9% 500ML 500 ML IVS SCH (07:00)
[2017-05-20] MEDS ORDERED: SODIUM CHLORIDE 0.9% (FLUSH) 10 ML SYG IV SCH (09:00)
--- NOTE | 2017-05-20 11:08 | DS ---
DISCHARGE DIAGNOSES: 1. Significant blood loss anemia requiring multiple units of RBCs. Must continue evaluation for significant GI bleed versus retroperitoneal hemorrhage after recent arterial stents placed in both left and right femoral vessels four days previously. 2. Significant nausea and vomiting and abdominal discomfort possibly to the underlying etiology of the blood loss. . 2. Significant leukocytosis with left shift suggesting reaction to underlying acute blood loss with a history of leukocytosis in the past being followed by Dr. Munoz, cancer specialist. 3. History of lung cancer in remission as of March of 2016. 4. 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 5. Chronic hematuria/ 6. History of hypertension but presently with significant hypotension. 7. Recurring syncopal episodes with complete loss of consciousness with Code Blue being called last evening after being placed in the hospital for overnight observation with spontaneous recovery of respiratory efforts after being placed back in the bed in a more supine position, probably secondary to the significant blood loss recently noted. 8. Chronic tobacco abuse with 75 pack year history of smoking. 9. Chronic obstructive pulmonary disease by history. 10. Atherosclerotic cardiovascular disease requiring various procedures including carotid as well as femoral treatment of stenotic lesions. HISTORY OF PRESENT ILLNESS: This 76 year-old white female was placed in the hospital after coming to the Emergency Room twice on the date of admission. Initially, she received some IV hydration and had a diagnosis of gastritis. When she returned home she had a complete episode when being helped to sit on the side of the bed ending up on her knees on the floor and being helped back into the bed where she again regained consciousness. EMS brought her back to the Emergency Room and she was placed in the hospital after another liter of fluid was given with blood pressure being in the 120s and 130s. Initial diagnoses of a possible gastritis contributing with nausea and vomiting frequently associated and in close proximity to the syncopal episodes was noted. The patient was significantly more disabled and very tired, weak, short of breath on the morning of discharge and transfer. Her hemoglobin had dropped significantly from 12 on the date of admission down to 7.3 on the morning of transfer. Her white count was also up to 31,500 with 89% neutrophils while platelets were normal at 202,000. Chemistries showed potassium of 5, BUN has increased from 14 to 29 and creatinine has also gone up to 1.72. Glucose 164. AST 77. Cardiac muscle enzymes were normal on the date of admission but upon repeat were elevated up to 475 CK, troponin was up to 0.09 on the morning of transfer. Beta natriuretic peptide was up to 328, albumin 2.7. Urinalysis did show some ketonuria and hematuria. Occult blood performed on the morning of transfer was negative, digitally acquired. She has been vomiting some dark brown material which could be partially digested blood. Blood cultures are negative thus far with urine and blood cultures still pending. Chest CT showed no significant change from before. Head CT showed no other acute findings. KUB showed no evidence of significant intraabdominal pathology. HOSPITAL COURSE: The patient's condition showed some degenerative deterioration on the morning of transfer. She required 2 units of packed red blood cells to be initiated before her air transport to [facility]. Her condition was discussed initially with Dr. Hernandez, branch rental manager fermentation engineer for Dr. Weller, her primary branch rental manager in [facility]. . He felt it would be best for us to transfer to the [facility] with [facility] transport assistance. She was accepted by Dr. Allen in the Emergency Room at [facility] at 9:57 A.M. PLAN: The patient will be transferred by [facility] because of the importance of shortening the time until she could be cared for at a medical center of higher level of care. Copies of x-rays and laboratory studies as well as admitting notes will be sent with the patient. She may benefit by pelvic abdominal CT scan to evaluate for the possibility of retroperitoneal hemorrhage as a 4-day delayed results of recent femoral stents placed bilaterally. Close followup is necessary with Dr. Weller and his associates. After stabilization, she may return for continued outpatient management and followup with Dr. Garzon, [facility] in [place]. Condition is serious. #[id number] [facility]
[2017-05-20 11:22] VITALS: BP 100/50; TEMP 98.2
[2017-05-20] MEDS ORDERED: PANTOPRAZOLE SODIUM IV 40 MG VIAL IV SCH (21:00)
--- NOTE | 2017-05-22 13:08 | PN ---
SUPERVISING PHYSICIAN: Trenton Avina MD DATE: 05/20/17 SUBJECTIVE: I was called to the hospital at about 12:30 in the morning due to the patient having a syncopal episode. She actually was getting up to go to the bathroom. She passed out and per the nursing personnel, she stopped breathing. When I arrived at the hospital, she had started breathing spontaneously on her own. A Code Blue had been called, but she was not intubated. No medications were given as her circulation returned spontaneously. Her vital signs right after the code was called showed temperature 97, heart rate 118, blood pressure 140/77, respiratory rate 20, and O2 saturation 100%. The patient was somewhat lethargic, but she answered questions appropriately. I attempted to call her backup operator, Dr. Weller in [place]. He was not lifestyle consultant. I spoke with the backup operator that was lifestyle consultant for Dr. Weller, Dr. Nunn. I explained to him the situation and gave him her vital signs as well as the history of her recent hospitalization. I also reported that her cardiac enzymes shortly after her syncopal episode showed a troponin of 0.07. He suggested that I review the AM labs as well as her next set of troponins and given her history and multiple comorbidities, that I watch her overnight and if her condition worsened or she had to be put on a ventilator , they would take her at [facility] in the morning. I also called [facility] in [place]. I spoke to the hospitalist lifestyle consultant at that time and given her vital signs as well as lab values, they would not take the patient at this time, but felt that if her condition worsened, they agreed to take her later. The family refused to go to [place] and were in agreement with staying until morning. PLAN: We will do serial cardiac enzymes as well as her routine blood for in the morning. I have also ordered hourly vital signs. The patient will also be on complete bedrest and a Michael catheter was placed. If her condition worsens, we will call [facility] or the backup operator lifestyle consultant in the morning to have her transferred. Vital signs at 1:45 showed temperature 97.2, heart rate 86, blood pressure 135/66, respiratory rate 18, O2 saturation 97% on 2 liters nasal cannula. Total critical care time: [address] Avina is the collaborating physician and available for consultation. . #[id number] [facility]
== END 2017-05-20 11:00 | disposition short-term general hospital (02) ==
LOC: ER 19:44 → MS 20:57
PROVIDERS: ADMIT Nurse Practitioner Acute Care; ATTEND Emergency Medicine
DX: D50.0 Iron deficiency anemia secondary to blood loss (chronic) (principal); R11.2 Nausea with vomiting, unspecified; D72.829 Elevated white blood cell count, unspecified; R31.9 Hematuria, unspecified; I95.9 Hypotension, unspecified; R55 Syncope and collapse; F17.210 Nicotine dependence, cigarettes, uncomplicated; I10 Essential (primary) hypertension; J44.9 Chronic obstructive pulmonary disease, unspecified; I25.10 Atherosclerotic heart disease of native coronary artery without angina pectoris; K74.60 Unspecified cirrhosis of liver; R18.8 Other ascites; Z98.890 Other specified postprocedural states; Z95.2 Presence of prosthetic heart valve; Z79.02 Long term (current) use of antithrombotics/antiplatelets; Z79.82 Long term (current) use of aspirin; Z79.899 Other long term (current) drug therapy; Z85.118 Personal history of other malignant neoplasm of bronchus and lung
CPT/HCPCS: 36415 ×4; 70450; 71250; 74018; 80053; 81001; 82270; 82550 ×2; 82553 ×2; 83735; 83880; 84484 ×2; 85025; 86850; 86900; 86901; 86922; 87040 ×2; 87086; 93005; 94760; 96361; 96374; 96375; 99284; J1200; J7030; J7040 ×2; P9016 ×2